=== PATIENT | female | born 1995 | race Caucasian/White ===

== ENCOUNTER 2018-10-14 06:48 | Outpatient (CLI) | payer BC ==
--- NOTE | 2018-10-14 07:50 | ULT ---
Abdominal Ultrasound: Multiple grayscale images of right upper quadrant obtained according to protocol. INDICATION: Pain FINDINGS: Liver: Prominent volume, 18.3 cm in length, without focal lesion demonstrated Gallbladder: Normal Gallbladder wall: Normal. Barfield's Sign: Negative Common bile duct is normal. Ascites: None Spleen: Unremarkable. Pancreas: Partially obscured by bowel content, limiting assessment. Kidneys: No acute abnormalities. Aorta/IVC: No acute process. IMPRESSION: No acute abnormalities. Hepatomegaly. Correlate clinically.
== END 2018-10-14 06:49 | disposition home or self-care (01) ==
LOC: SCSULT 06:48
PROVIDERS: ATTEND Internal Medicine Gastroenterology
DX: K21.9 Gastro-esophageal reflux disease without esophagitis (principal); K92.1 Melena; R10.11 Right upper quadrant pain; R10.31 Right lower quadrant pain; R19.7 Diarrhea, unspecified; R11.0 Nausea; R07.89 Other chest pain; R16.0 Hepatomegaly, not elsewhere classified
CPT/HCPCS: 76700

== ENCOUNTER 2018-10-21 10:00 | Outpatient (CLI) | payer BC ==
[~2018-10-21 10:00] MED LIST: Iopamidol 370 76% 100 ML VIAL ONE
--- NOTE | 2018-10-21 11:40 | CT ---
CT ABDOMEN AND PELVIS WITH IV CONTRAST: Date: 10/21/18 PROVIDED CLINICAL HISTORY: Abnormal ultrasound, ulcerative colitis. FINDINGS: There are patchy foci of incompletely visualized and incompletely characterized somewhat nodular opac ity involving the lingula. The visualized lung bases are otherwise free of significant opacity. The liver appears enlarged, measuring approximately 18.6 cm in craniocaudal dimension at the right he patic lobe and measuring 13.4 cm in greatest AP dimension at the right hepatic lobe and measuring 23. 6 cm in transverse dimension at the level of the main portal vein. There are focal areas of diminished attenuation involving the liver, having somewhat ill-defined paty ins involving the subcapsular region of the left hepatic lobe near the dome and peripheral aspects of the posterior segment of the right hepatic lobe near the dome. These demonstrate features suggestive , though not definitive for hemangiomas. The right hepatic lobe focus measures about 2.0 cm and the l eft hepatic lobe focus measures about 1.0 cm. The spleen, pancreas, kidneys, and adrenal glands demonstrate an unremarkable CT appearance. There is no bowel dilatation, inflammatory fat stranding, free fluid, or lymph node enlargement appar ent. The osseous structures demonstrate no concerning osteoblastic or osteolytic lesions. IMPRESSION: 1. Hepatomegaly. 2. Somewhat nodular lingular opacity may reflect subsegmental atelectatic change or pneumonitis. 3. Right and left hepatic lobe lesions, with CT findings suggestive of hemangiomata, but incompletel y characterized on the basis of this study. POS: [facility] [place]
== END 2018-10-21 10:01 | disposition home or self-care (01) ==
LOC: BICCT 10:00
PROVIDERS: ATTEND Internal Medicine Gastroenterology
DX: R16.0 Hepatomegaly, not elsewhere classified (principal); R93.89 Abnormal findings on diagnostic imaging of other specified body structures; K76.9 Liver disease, unspecified
CPT/HCPCS: 74177; Q9967

== ENCOUNTER 2018-10-30 07:44 | Outpatient (CLI) | payer BC ==
[2018-10-30] MEDS ORDERED: Gadobenate Dimeglumine 529 MG/1 ML (20ML VIAL) ONE (09:00)
[2018-10-30 09:45] LABS: ALT (SGPT) 48 U/L (8-55); AST (SGOT) 21 U/L (5-34); Albumin 4.1 g/dL (3.5-5.0); Alkaline Phosphatase 101 U/L (40-150); Bilirubin, Direct 0.2 mg/dL (0.1-0.3); Bilirubin, Total 0.4 mg/dL (0.2-1.2); Cardiac Risk 3.7 (Less than 4.5); Cholesterol 163 mg/dl (< 200 Desired); HDL Cholesterol 44 mg/dL (>60 Neg Risk); LDL Cholesterol, Calculated 94 mg/dL; Protein, Total 7.1 g/dL (6.0-8.3); Triglycerides 127 mg/dL (Less than 150)
[2018-10-30 12:16] LABS: HBCM Index 0.08 S/CO (0-0.79); HBSAg Index 0.26 S/CO (0-0.99); Hep A IgM AB Non-Reactive (NonReactive); Hep A IgM S/CO 0.15 S/CO (0-0.79); Hep B Surf Ag Non-Reactive S/CO (NonReactive); Hep C IgG Ab Non-Reactive (NonReactive); Hep C Index 0.08 S/CO (0-0.79); Hepatitis B Core IgM Abs Non-Reactive (NonReactive)
--- NOTE | 2018-10-30 12:48 | MRI ---
MRI ABDOMEN WITH AND WITHOUT IV CONTRAST: COMPARISON: Abdominal CT scan from 10/21/2018. FINDINGS: The lesion in the peripheral right lobe of the liver noted on the CT scan demonstrates high T2 signal with peripheral nodular enhancement and complete filling on delayed images, consistent with hemangio ma. The CT lesion in the left lobe appears to have filled up completely on the delayed contrast enha nced images on the MRI. This is not well seen on the pre-contrast and T2-weighted sequences, likely due to its close proximity to a beating heart. The gallbladder, spleen, pancreas, adrenal glands, and kidneys are normal. No free fluid or lymphade nopathy is seen. The aorta is normal. Bone marrow signal is normal. IMPRESSION: Liver hemangiomas. POS: [facility]
[2018-10-31 12:07] LABS: ANA Symphony (Qualitative) Negative (Negative); ANA Symphony (Quantitative) 0.1 Ratio (< 0.7 Negative); EliA Vaculitis New Method **** NEW METHOD ****; Mitochondrial Ab Less than 0.5 U/mL (<4 Negative); dsDNA IgG Antibody Less than 0.5 IU/mL (<10 Negative)
== END 2018-10-30 07:45 | disposition home or self-care (01) ==
LOC: SCSMRI 07:44
PROVIDERS: ATTEND Internal Medicine Gastroenterology
DX: R16.0 Hepatomegaly, not elsewhere classified (principal); R93.5 Abnormal findings on diagnostic imaging of other abdominal regions, including retroperitoneum; D18.03 Hemangioma of intra-abdominal structures
CPT/HCPCS: 36415; 74183; 80061; 80074; 80076; 82105; 82390; 83516; 86038; 86225; A9577